=== PATIENT | female | born 1950 | race Caucasian/White ===

== ENCOUNTER → 2018-09-21 10:23 | Outpatient (CLI) | payer MEDICARE, SELFPAY ==
--- NOTE | 2018-09-21 10:49 | BD_ITS ---
STUDY: DUAL ENERGY X-RAY ABSORPTIOMETRY / DXA REASON FOR EXAM: Female, 68 years old. Early menopause. Loss of height. TECHNIQUE: Bone Mineral Density (BMD) measurements of lumbar spine and bilateral hips were obtained. COMPARISON: Comparison is made with prior study dated June 22, 2011. FINDINGS: Lumbar Spine (L1-L4): g/cm2 (1.129) / T-score (-0.6) / Z-score (1.1) Findings are suggestive of normal bone density with a low fracture risk. Left Femur Total: g/cm2 (0.982) / T-score (-0.2) / Z-score (1.2) Left Femoral Neck: g/cm2 (0.844) / T-score (-1.4) / Z-score (0.3) Right Femur Total: g/cm2 (1.034) / T-score (0.2) / Z-score (1.6) Right Femoral Neck: g/cm2 (0.986) / T-score (-0.4) / Z-score (1.3) The T-Scores on the most recent prior examination were: Lumbar Spine (L1-L4): There has been improvement of bone density since the previous examination. Left Femur Total: which represents an improvement of 1.6%. Right Femur Total: which represents a worsening of 0.4%. BD/Dexa Bone Density Study IMPRESSION: The patient is considered osteopenic as outlined below according to World Michael Organization (WHO) criteria with a low fracture risk. There has been improvement of bone density since the previous examination. Reference Information: The T-score is the number of standard deviations above or below the standard which is normal for young adults at their peak bone mineral density. The World Health Organization (WHO) interprets the T-scores as follows: Above -1 Normal bone density Between -1 and -2.5 Osteopenia Equal to / or below -2.5 Osteoporosis As a practical clinical guideline, osteopenia may be graded as follows: Mild -1 through -1.5 Moderate -1.6 through -2.0 Severe -2.1 through -2.4 The Z-score is the number of standard deviations above or below age-matched controls. A Z-score of less than -1.5 would be considered abnormal. References: 1. NIH Osteoporosis and Related Bone Diseases http://www.osteo.org 2. International Society for Clinical Densitometry http://www.iscd.org 3. National Osteoporosis Foundation http://www.nof.org Electronically Signed: Joe Marquez, at 11:17 EDT , Service support ,
== END ==
PROVIDERS: Family Provider Internal Medicine; PCP Internal Medicine; Visit Provider Internal Medicine
DX: Z78.0 Asymptomatic menopausal state (principal)
CPT/HCPCS: 77080

== ENCOUNTER → 2019-07-25 05:54 | Outpatient (CLI) | payer MEDICARE, SELFPAY ==
--- NOTE | 2019-07-25 06:06 | ECHOD_ITS ---
Reason For Study: Chest Pain Procedure This was a 2D Doppler, Color Flow transthoracic echocardiogram. Exam performed in department. Left Ventricle Normal LV size. The estimated ejection fraction is 50 %. Left ventricular systolic function is lower limits of normal. Stage 1 diastolic dysfunction. No regional wall motion abnormalities noted. Right Ventricle Normal RV size. Normal systolic function. Atria Normal left atrium. Normal right atrium. Mitral Valve Normal mitral valve. Mild (1+) eccentric mitral valve insufficiency. Tricuspid Valve Normal tricuspid valve. Mild (1+) tricuspid valve insufficiency. Pulmonary artery systolic pressure is 30 mmHg. Aortic Valve Normal aortic valve. Trisinus/trileaflet aortic valve. Pulmonic Valve Normal pulmonic valve. Great Vessels Normal aortic root. The pulmonary artery is normal size. Normal inferior vena cava. Pericardium/Pleural No pericardial effusion. MMode/2D Measurements & Calculations LVIDd: 4.1 cm IVSd: 1.1 cm Ao root diam: 3.2 cm LVIDs: 2.8 cm LVPWd: 1.1 cm RVDd: 3.2 cm FS: 32.5 % LAV(MOD-bp): 56.0 ml LVAd ap4: 28.7 cm2 SV(MOD-sp4): 47.7 ml LAV(MOD-bp) Indexed: 27.2 ml/m2 EDV(MOD-sp4): 89.6 ml LAV(MOD-sp2): 55.9 ml EDV(sp4-el): 91.7 ml LAV(MOD-sp4): 52.7 ml LVAs ap4: 17.9 cm2 ESV(MOD-sp4): 41.9 ml ESV(sp4-el): 40.9 ml EF(MOD-sp4): 53.3 % EF(sp4-el): 55.4 % SV(sp4-el): 50.9 ml LA A4 area: 19.0 cm2 LA dimension(2D): 3.6 cm RA A4 area: 12.9 cm2 Doppler Measurements & Calculations MV E max yo: 54.0 cm/sec Lat Peak E' Yo: 6.3 cm/sec Med Peak E' Yo: 3.6 cm/sec MV A max yo: 92.1 cm/sec E/E' lat: 8.6 E/E' med: 14.9 MV E/A: 0.59 Ao V2 max: 145.7 cm/sec LV V1 max: 84.2 cm/sec PA V2 max: 89.7 cm/sec Ao max P.5 mmHg LV V1 max P.8 mmHg Ao V2 mean: 116.6 cm/sec Ao mean P.7 mmHg Ao V2 VTI: 32.4 cm TR max yo: 254.7 cm/sec TR max P.9 mmHg Interpretation Summary Normal LV size. The estimated ejection fraction is 50 %. Left ventricular systolic function is lower limits of normal. Stage 1 diastolic dysfunction. Ordering Physician: Nkechi Mcgee Referring Physician: Nkechi Mcgee Performed By: Lucia Teague, WILLEM, RVT
--- NOTE | 2019-07-25 14:00 | STRESSREP ---
Stress Test Report Exercise myocardial perfusion stress test. 69-year-old lady with a history of chest pain. Resting EKG demonstrates normal sinus rhythm with a rate of 73 bpm normal intervals are noted resting blood pressure is 142/82 mmHg. The patient exercised according to regular [place] protocol for a total duration of 3 minutes and 31 seconds. The maximum heart rate attained was 151 bpm which was 100% of maximum predicted heart rate the maximum workload was 4.6 metabolic equivalents. At rest there were no ST or T wave changes noted suggest ischemia peak exercise upsloping ST changes were noted with no meet the criteria for ischemia. The resting blood pressures 142/82 with a peak blood pressure 190/94 mmHg. No clinical angina was noted. Myocardial perfusion protocol. 14.1 mCi of technetium 99m sestamibi was injected at rest. The patient exercised for 3-1/2 minutes at peak exercise 44.3 mCi of technetium 99m sestamibi was injected stress images were obtained stress and rest images were reconstructed and compared in the short axis vertical and horizontal long axis. Gated images were also obtained Perfusion SPECT analysis: Review of the stress images demonstrate normal uptake of tracer noted in all areas of myocardium the resting images similarly demonstrate normal uptake of tracer noted in all areas of myocardium. No reversibility is noted suggest ischemia no previous infarct is noted. Gated SPECT analysis: The gated ejection fraction is noted to be 61%. Conclusion: Normal exercise myocardial perfusion stress test at a low workload. Preserved ejection fraction. The workload may affect sensitivity for detection of ischemia.
== END ==
PROVIDERS: PCP Internal Medicine; Referring Provider Internal Medicine; Visit Provider Internal Medicine
DX: R07.89 Other chest pain (principal)
CPT/HCPCS: 78452; 93017; 93306; A9500

== ENCOUNTER → 2022-09-01 | Outpatient (CLI) | payer MEDICARE, SELFPAY ==
[2022-09-01 16:20] LABS: Troponin-I HS 4 pg/mL (3.0-54.0)
== END | disposition home or self-care (01) ==
PROVIDERS: PCP Internal Medicine; Visit Provider Internal Medicine
DX: R07.9 Chest pain, unspecified (principal)
CPT/HCPCS: 84484